=== PATIENT | male | born 1980 | race American Indian/Alaskan Native ===

== ENCOUNTER 2021-05-29 13:54 | Emergency (ER) | payer SELFPAY ==
[2021-05-29 18:18] LABS: Basophils % (Auto) 0.5 % (0.0-1.8); Eosinophils # (Auto) 0.2 K/mm3 (0.0-0.4); Eosinophils % (Auto) 3.1 % (0.0-4.3); Hematocrit 41.6 % (35.5-45.6); Lymphocytes # (Auto) 2.1 K/mm3 (1.2-5.4); Lymphocytes % (Auto) 29.8 % (13.4-35.0); Mean Corpuscular HGB Conc 34 % (32-34); Mean Corpuscular Volume 87 fl (84-94); Monocytes # (Auto) 0.6 K/mm3 (0.0-0.8); Monocytes % (Auto) 8.8 % (0.0-7.3); Platelet Count 129 K/mm3 (140-440); Red Blood Count 4.76 M/mm3 (3.65-5.03)
--- NOTE | 2021-05-29 18:25 | Ultrasound Report ---
ULTRASOUND SCROTUM INDICATION / CLINICAL INFORMATION: right sided testicular swelling and pain. COMPARISON: None available. FINDINGS -- RIGHT TESTIS: Size = 5.3 x 2.6 x 3.8 cm. - Appearance: No significant abnormality. - Cyst or Mass: None. - Color Doppler Flow: No significant abnormality. EPIDIDYMIS: No significant abnormality. HYDROCELE: None. VARICOCELE: None demonstrated. FINDINGS -- LEFT TESTIS: Size = 5.1 x 2.8 x 3.5 cm. - Appearance: No significant abnormality. - Cyst or Mass: None. - Color Doppler Flow: No significant abnormality. EPIDIDYMIS: No significant abnormality. HYDROCELE: None. VARICOCELE: None demonstrated. ADDITIONAL FINDINGS: None. IMPRESSION: 1. No significant abnormality. Both testes have a normal size. No evidence for torsion. 2. No sonographic abnormality to account for the complaint of right testicular pain. Signer Name: Karina Nichols MD Signed: 05/29/2021 6:21 PM Workstation Name: [id number]
[2021-05-29 18:35] LABS: Alanine Aminotransferase 53 units/L (7-56); Albumin 4.5 g/dL (3.9-5); BUN/Creatinine Ratio 18; Blood Urea Nitrogen 14 mg/dL (9-20); Calcium 9.2 mg/dL (8.4-10.2); Hemolysis Index 21
[2021-05-29 18:38] LABS: Bilirubin,Urine NEG (Negative); Blood,Urine NEG (Negative); Color,Urine Straw (Yellow); Protein,Urine <15 mg/dL mg/dL (Negative); RBC,Urine < 1.0 /HPF (0.0-6.0); Urobilinogen,Urine < 2.0 mg/dL (<2.0)
--- NOTE | 2021-05-29 18:49 | Emergency Department Report ---
ED General Adult HPI - General Chief complaint: Pain General Stated complaint: GROIN PAIN Time Seen by Provider: 05/29/21 17:39 Source: patient Mode of arrival: Ambulatory Limitations: No Limitations - History of Present Illness Initial comments: Patient is a 40-year-old male presents emergency room complaints of right-sided testicular pain and swelling that began this morning. He states that he is also been having abdominal discomfort, abdominal bloating, lumps present to the abdomen for approximately 5 to 6 months. He states he has not seen a primary care doctor in a year. He denies any penile discharge, fever, nausea, vomiting, diarrhea, urinary retention, hematuria, urinary symptoms. He states he is only sexually active with his and denies any concerns for STDs. No past medical history. No allergies to medicines. - Related Data Previous Rx's Medication Instructions Recorded Last Taken Type Ibuprofen [Motrin 600 MG tab] 600 mg PO Q8H PRN #14 tablet 05/29/21 Unknown Rx traMADoL [Ultram 50 MG tab] 50 mg PO Q6HR PRN #12 tablet 05/29/21 Unknown Rx Allergies Allergy/AdvReac Type Severity Reaction Status Date / Time No Known Allergies Allergy Unverified 05/29/21 16:53 ED Review of Systems ROS: Stated complaint: GROIN PAIN Other details as noted in HPI Comment: All other systems reviewed and negative ED Past Medical Hx - Past Medical History Previous Medical History?: No - Surgical History Past Surgical History?: No - Medications Home Medications: Home Medications Medication Instructions Recorded Confirmed Last Taken Type Ibuprofen [Motrin 600 MG tab] 600 mg PO Q8H PRN #14 tablet 05/29/21 Unknown Rx traMADoL [Ultram 50 MG tab] 50 mg PO Q6HR PRN #12 tablet 05/29/21 Unknown Rx ED Physical Exam - General Limitations: No Limitations General appearance: alert, in no apparent distress - Head Head exam: Present: atraumatic, normocephalic - Eye Eye exam: Present: normal appearance - ENT ENT exam: Present: mucous membranes moist - Respiratory Respiratory exam: Present: normal lung sounds bilaterally. Absent: respiratory distress, wheezes, rales, rhonchi, stridor, chest wall tenderness, accessory muscle use, decreased breath sounds, prolonged expiratory - Cardiovascular Cardiovascular Exam: Present: regular rate, normal rhythm, normal heart sounds. Absent: systolic murmur, diastolic murmur, rubs, gallop - GI/Abdominal GI/Abdominal exam: Present: soft, distended (mildly), normal bowel sounds, other (multiple palpable LAD). Absent: tenderness, guarding, rebound, rigid - exam: Present: other (flatwork finisher hand: Doe, RN, there is right sided scrotal edema with mild right sided testicular ttp, no erythema, no increased warmth, no skin changes, normal cremasteric reflex, normal testicular lie, moderate size left inguinal LAD) - Neurological Exam Neurological exam: Present: alert, oriented X3 - Psychiatric Psychiatric exam: Present: normal affect, normal mood - Skin Skin exam: Present: warm, dry, intact ED Course Vital Signs 05/29/21 16:53 Temperature 98.1 F Pulse Rate 61 Respiratory 20 Rate Blood Pressure 133/87 O2 Sat by Pulse 100 Oximetry ED Medical Decision Making - Lab Data Result diagrams: 05/29/21 17:59 05/29/21 17:59 Lab Results 05/29/21 05/29/21 05/29/21 Range/Units 17:59 17:59 18:15 WBC 7.0 (4.5-11.0) K/mm3 RBC 4.76 (3.65-5.03) M/mm3 Hgb 14.0 (11.8-15.2) gm/dl Hct 41.6 (35.5-45.6) % MCV 87 (84-94) fl MCH 29 (28-32) pg MCHC 34 (32-34) % RDW 14.0 (13.2-15.2) % Plt Count 129 L (140-440) K/mm3 Lymph % (Auto) 29.8 (13.4-35.0) % [place] % (Auto) 8.8 H (0.0-7.3) % Eos % (Auto) 3.1 (0.0-4.3) % Baso % (Auto) 0.5 (0.0-1.8) % Lymph # (Auto) 2.1 (1.2-5.4) K/mm3 [place] # (Auto) 0.6 (0.0-0.8) K/mm3 Eos # (Auto) 0.2 (0.0-0.4) K/mm3 Baso # (Auto) 0.0 (0.0-0.1) K/mm3 Seg Neutrophils % 57.8 (40.0-70.0) % Seg Neutrophils # 4.1 (1.8-7.7) K/mm3 Sodium 141 (137-145) mmol/L Potassium 4.1 (3.6-5.0) mmol/L Chloride 102.6 (98-107) mmol/L Carbon Dioxide 31 H (22-30) mmol/L Anion Gap 12 mmol/L BUN 14 (9-20) mg/dL Creatinine 0.8 (0.8-1.3) mg/dL Estimated GFR > 60 ml/min BUN/Creatinine Ratio 18 % Glucose 75 (75-100) mg/dL Calcium 9.2 (8.4-10.2) mg/dL Total Bilirubin 0.20 (0.1-1.2) mg/dL AST 33 (5-40) units/L ALT 53 (7-56) units/L Alkaline Phosphatase 76 (35-129) units/L Total Protein 7.3 (6.3-8.2) g/dL Albumin 4.5 (3.9-5) g/dL Albumin/Globulin Ratio 1.6 % Lipase 22 (13-60) units/L Urine Color Straw (Yellow) Urine Turbidity Clear (Clear) Urine pH 8.0 H (5.0-7.0) Ur Specific [place] 1.013 (1.003-1.030) Urine Protein <15 mg/dl (Negative) mg/dL Urine Glucose (UA) Neg (Negative) mg/dL Urine Ketones Neg (Negative) mg/dL Urine Blood Neg (Negative) Urine Nitrite Neg (Negative) Urine Bilirubin Neg (Negative) Urine Urobilinogen < 2.0 (<2.0) mg/dL Ur Leukocyte Esterase Neg (Negative) Urine WBC (Auto) 4.0 (0.0-6.0) /HPF Urine RBC (Auto) < 1.0 (0.0-6.0) /HPF - Radiology Data Radiology results: report reviewed Ordering Physician: ARTIS MONTE Date of Service: 05/29/21 Procedure(s): US testicular doppler comp Accession Number(s): [id number] cc: ARTIS MONTE ULTRASOUND SCROTUM INDICATION / CLINICAL INFORMATION: right sided testicular swelling and pain. COMPARISON: None available. FINDINGS -- RIGHT TESTIS: Size = 5.3 x 2.6 x 3.8 cm. - Appearance: No significant abnormality. - Cyst or Mass: None. - Color Doppler Flow: No significant abnormality. EPIDIDYMIS: No significant abnormality. HYDROCELE: None. VARICOCELE: None demonstrated. FINDINGS -- LEFT TESTIS: Size = 5.1 x 2.8 x 3.5 cm. - Appearance: No significant abnormality. - Cyst or Mass: None. - Color Doppler Flow: No significant abnormality. EPIDIDYMIS: No significant abnormality. HYDROCELE: None. VARICOCELE: None demonstrated. ADDITIONAL FINDINGS: None. IMPRESSION: 1. No significant abnormality. Both testes have a normal size. No evidence for torsion. 2. No sonographic abnormality to account for the complaint of right testicular pain. Signer Name: Karina Nichols MD Signed: 05/29/2021 6:21 PM Workstation Name: [id number] Transcribed By: JR Dictated By: Karina Nichols MD Electronically Authenticated By: Karina Nichols MD Signed Date/Time: 05/29/211820 DD/ 18 TD/TT: Ordering Physician: ARTIS MONTE Date of Service: 05/29/21 Procedure(s): CT abdomen pelvis w con Accession Number(s): [id number] cc: ARTIS MONTE CT ABDOMEN AND PELVIS WITH CONTRAST HISTORY: abd pain, abd distension, multiple palpable LAD. COMPARISON: None. TECHNIQUE: CT images of the abdomen and pelvis were obtained following administration of intravenous contrast. All CT scans at this location are performed using CT dose reduction for ALARA by means of automated exposure control. CONTRAST: 100 ml of intravenous contrast administered. FINDINGS: Lungs/bones: Lung bases are clear. No acute osseous abnormality identified. 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 Abdomen/pelvis: There is hepatic steatosis. Cholelithiasis is also noted with no gallbladder wall thickening or inflammatory change. The spleen, pancreas, adrenals, kidneys, and proximal GI tract appear unremarkable. Urinary bladder and prostate are normal with no pelvic free fluid or acute colonic abnormality. The appendix and terminal ileum appear normal. IMPRESSION: 1. Shotty bilateral inguinal lymph nodes are nonspecific without pathologic enlargement. No acute abnormality identified. 2. Incidental findings as above. Signer Name: Imtiaz Prado MD Signed: 05/29/2021 7:33 PM Workstation Name: [id number] Transcribed By: URVASHI Dictated By: Imtiaz Prado MD Electronically Authenticated By: Imtiaz Prado MD Signed Date/Time: 05/29/211932 DD/ 28 TD/TT: - Medical Decision Making Patient is a 40-year-old male presents emergency room complaints of right-sided testicular pain and swelling that began this morning. He states that he is also been having abdominal discomfort, abdominal bloating, lumps present to the abdomen for approximately 5 to 6 months. He states he has not seen a primary care doctor in a year. He denies any penile discharge, fever, nausea, vomiting, diarrhea, urinary retention, hematuria, urinary symptoms. He states he is only sexually active with his and denies any concerns for STDs. No past medical history. No allergies to medicines. Vitals are stable. On exam:flatwork finisher hand: YOANNA Azar, there is right sided scrotal edema with mild right sided testicular ttp, no erythema, no increased warmth, no skin changes, normal cremasteric reflex, normal testicular lie, moderate size left inguinal LAD, multiple palpable LAD in the abdomen, no ttp of the abdomen, no guarding, no rebound, no rigidity. Labs are stable. UA is within normal limits. Testicular ultrasound: 1. No significant abnormality. Both testes have a normal size. No evidence for torsion. 2. No sonographic abnormality to account for the complaint of right testicular pain. CT abd pelvis with IV contrast: 1. Shotty bilateral inguinal lymph nodes are nonspecific without pathologic enlargement. No acute abnormality identified. 2. Incidental findings as above. Discussed all results with patient and answer questions. Discussed the importance of outpatient follow-up. Patient given prescription for medications. Advised patient Please take medication as prescribed as needed. Follow-up with your primary care doctor. Follow-up with a general surgeon. Follow-up with urologist. Return to emergency room for any new or worsening symptoms. - Differential Diagnosis Epididymitis, orchitis, hernia, LAD, mass, cancer, lymphoma Critical care attestation.: If time is entered above; I have spent that time in minutes in the direct care of this critically ill patient, excluding procedure time. ED Disposition Clinical Impression: Testicular swelling, right, LAD (lymphadenopathy) Disposition: - TO HOME OR SELFCARE Is pt being admited?: No Does the pt Need Aspirin: No Condition: Stable Instructions: Lymphadenopathy, Scrotal Swelling Additional Instructions: Please take medication as prescribed as needed. Follow-up with your primary care doctor. Follow-up with a general surgeon. Follow-up with urologist. Return to emergency room for any new or worsening symptoms. Prescriptions: Ibuprofen [Motrin 600 MG tab] 600 mg PO Q8H PRN #14 tablet PRN Reason: Pain, Moderate (4-6) traMADoL [Ultram 50 MG tab] 50 mg PO Q6HR PRN #12 tablet PRN Reason: Pain , Severe (7-10) Referrals: DAMARIS VALVERDE MD [Staff Physician] - 3-5 Days MADHAV HARE MD [Staff Physician] - 3-5 Days ZUHAIR SOTO MD [Staff Physician] - 3-5 Days Forms: Work/School Release Form(ED) Time of Disposition: 19:47 Print Language: CAMBODIAN
--- NOTE | 2021-05-29 19:37 | Cat Scan Report ---
CT ABDOMEN AND PELVIS WITH CONTRAST HISTORY: abd pain, abd distension, multiple palpable LAD. COMPARISON: None. TECHNIQUE: CT images of the abdomen and pelvis were obtained following administration of intravenous contrast. All CT scans at this location are performed using CT dose reduction for ALARA by means of automated exposure control. CONTRAST: 100 ml of intravenous contrast administered. FINDINGS: Lungs/bones: Lung bases are clear. No acute osseous abnormality identified. Mild discogenic DJD in t he lower lumbar spine. Abdomen/pelvis: There is hepatic steatosis. Cholelithiasis is also noted with no gallbladder wall th ickening or inflammatory change. The spleen, pancreas, adrenals, kidneys, and proximal GI tract appea r unremarkable. Urinary bladder and prostate are normal with no pelvic free fluid or acute colonic abnormality. The a ppendix and terminal ileum appear normal. IMPRESSION: 1. Shotty bilateral inguinal lymph nodes are nonspecific without pathologic enlargement. No acute abn ormality identified. 2. Incidental findings as above. Signer Name: Imtiaz Prado MD Signed: 05/29/2021 7:33 PM Workstation Name: [id number]
[2021-05-30 05:54] VITALS: BP 130/82
== END 2021-05-29 20:00 | disposition home or self-care (01) ==
LOC: ED 13:54
DX: R59.1 Generalized enlarged lymph nodes (principal)
CPT/HCPCS: 36415; 74177; 80053; 81001; 83690; 85025; 93975; 99284; Q9967